=== PATIENT | female | born 1950 | race Caucasian/White ===

== ENCOUNTER 2016-04-23 12:35 | Outpatient (CLI) | payer MEDICARE, OTHER | END 2016-04-23 12:36 | disposition home or self-care (01) | DX: Z12.31 Encounter for screening mammogram for malignant neoplasm of breast (principal); Z80.3 Family history of malignant neoplasm of breast ==

== ENCOUNTER 2016-05-31 08:24 | Outpatient (CLI) | payer MEDICARE, OTHER | END 2016-05-31 08:25 | disposition home or self-care (01) | DX: E78.5 Hyperlipidemia, unspecified (principal); E03.9 Hypothyroidism, unspecified ==

== ENCOUNTER 2016-12-08 10:57 | Outpatient (CLI) | payer MEDICARE, OTHER ==
[2016-12-08 19:25] LABS: ALBUMIN/GLOBULIN RATIO 1.6 (1.0-2.2); BILIRUBIN,TOTAL 0.6 mg/dL (0.2-1.0); BUN - BLOOD UREA NITROGEN 15 mg/dL (6-20); CALCIUM 9.4 mg/dL (8.5-10.3); CARBON DIOXIDE - CO2 25 mmol/L (21-32); CHLORIDE 100 mmol/L (101-111); CHOLESTEROL 161 mg/dL; CREATININE 0.8 mg/dL (0.4-1.0); GFR - MDRD 72 (>89); GLUCOSE 100 mg/dL (70-100); HDL CHOLESTEROL 82 mg/dL; LDL/HDL RATIO 0.7 (<4.4); SODIUM 135 mmol/L (135-145); TOTAL PROTEIN 7.4 g/dL (6.7-8.2); TRIGLYCERIDES 90 mg/dL; VLDL CHOLESTEROL 18 mg/dL
== END 2016-12-08 10:58 | disposition home or self-care (01) ==
LOC: LAB.WCP 10:57
PROVIDERS: ATTEND Physician Assistant Medical
DX: R73.9 Hyperglycemia, unspecified (principal); E78.5 Hyperlipidemia, unspecified
CPT/HCPCS: 36415; 80053; 80061

== ENCOUNTER 2017-09-28 20:03 | Inpatient (IN) | payer MEDICARE, OTHER ==
--- NOTE | 2017-09-28 20:34 | ED Physician Documentation ---
PD HPI DYSPNEA - Stated complaint Stated Complaint: WEAK/SOB - Chief complaint Chief Complaint: General - History obtained from History obtained from: Patient - History of Present Illness Timing - duration: Months (1) Timing - details: Gradual onset, Still present Inciting event(s): Exercise (she feels lightheaded and dyspnea with easier activity, now with just walking up stairs.). No: URI Worsened by: Exertion Associated symptoms: Diaphoresis. No: Fever, Cough, Hemoptysis, Wheezing, Bilateral edema Similar symptoms before: Has not had sx before Recently seen: Clinic (seen at [facility] for upper abd pains, had EGD about 2 months ago and Dx with ulcers/h.pylori positive and just finished abx for that a few weeks ago or so.) Review of Systems Constitutional: reports: Fatigue. denies: Fever, Chills, Myalgias Nose: denies: Rhinorrhea / runny nose, Congestion Throat: denies: Sore throat Cardiac: denies: Chest pain / pressure, Palpitations, Pedal edema, Calf pain Respiratory: reports: Dyspnea. denies: Cough, Wheezing GI: reports: Abdominal Pain (intermittent upper abd pain c/w prior ulcer diagnosis, still pains with eating at times.), Nausea. denies: Abdominal Swelling, Vomiting, Constipation, Diarrhea (but has noted soft stools), Bloody / black stool : denies: Dysuria, Frequency Musculoskeletal: denies: Neck pain, Back pain Neurologic: reports: Generalized weakness, Near syncope. denies: Syncope, Altered mental status Endocrine: denies: Weight loss, Easy bruising / bleeding, Swollen lymph nodes Immunocompromised: denies: Immunocompromised PD PAST MEDICAL HISTORY - Past Medical History Cardiovascular: Hypertension, High cholesterol, Coronary artery disease, Peripheral Vascular Disease, Murmur, Other Respiratory: None Endocrine/Autoimmune: Type 2 diabetes, HyPOthyroidism GI: Ulcers (dx with EGD couple months ago, h.pylori positive. Finished meds and was to get stool test done end august. ) : None HEENT: None Psych: None Musculoskeletal: None Derm: None - Past Surgical History General: Colonoscopy Cardiovascular: Vascular surgery - Present Medications Home Medications: Ambulatory Orders Medication Instructions Recorded Confirmed Aspirin [Aspir-Low] 81 mg PO DAILY 06/25/15 06/25/15 Hydrochlorothiazide 12.5 mg PO DAILY 06/25/15 06/25/15 Metformin HCl 1,000 mg PO BID 06/25/15 06/25/15 Potassium Chloride 10 meq PO DAILY 06/25/15 06/25/15 Rosuvastatin Calcium [Crestor] 20 mg PO DAILY 06/25/15 06/25/15 - Allergies Allergies/Adverse Reactions: Allergies Allergy/AdvReac Type Severity Reaction Status Date / Time No Known Drug Allergies Allergy Verified 09/28/17 20:59 - Social History Does the pt drink ETOH?: No Does the pt have substance abuse?: No - Family History Family history: reports: CAD PD ED PE NORMAL - Vitals Vital signs reviewed: Yes (initially low BP but improved with lying down and with IV fluids. ) - General General: Alert and oriented X 3, Well developed/nourished - HEENT HEENT: Pharynx benign. No: Moist mucous membranes - Neck Neck: Supple, no meningeal sign, No adenopathy, No JVD - Cardiac Cardiac: RRR, No murmur - Respiratory Respiratory: Clear bilaterally - Abdomen Abdomen: Normal bowel sounds, Soft, Non distended, No organomegaly, Other (mild tenderness epigastric area) - Female Female : Deferred - Rectal Rectal: Other (dark stool, very guiac positive. ) - Back Back: No CVA TTP - Derm Derm: Warm and dry. No: Normal color (very pale) - Extremities Extremities: No deformity, No tenderness to palpate, Normal ROM s pain, No edema - Neuro Neuro: Alert and oriented X 3, No motor deficit, Normal speech - Psych Psych: Normal mood, Normal affect Results - Vitals Vitals: Vital Signs - 24 hr 09/28/17 09/28/17 09/28/17 20:09 20:27 20:45 Temperature 36.2 C L 36.2 C L 36.2 C L Heart Rate 88 96 96 Respiratory 20 20 22 Rate Blood Pressure 93/42 L 132/56 H O2 Saturation 91 L 96 09/28/17 09/28/17 09/28/17 21:04 21:31 21:43 Temperature 35.9 C L Heart Rate 93 86 84 Respiratory 23 20 17 Rate Blood Pressure 135/47 H 126/52 L 126/52 L O2 Saturation 99 98 100 Oxygen O2 Source Nasal cannula Oxygen Flow Rate 2 - EKG (time done) 20:36 Rate: Rate (enter#) (96) Rhythm: NSR [place]: Normal Intervals: Normal GA QRS: Normal Ischemia: Normal ST segments, T wave inversion (laterally). No: ST elevation c/ w ischemia, ST depression Compare to prior EKG: Old EKG unavailable - Labs Labs: Laboratory Tests 09/28/17 09/28/17 09/28/17 20:40 20:40 20:40 WBC RBC Hgb Hct MCV MCH MCHC RDW Plt Count MPV Neut # (Auto) Lymph # (Auto) [place] # (Auto) Eos # (Auto) Baso # (Auto) Absolute Nucleated RBC Nucleated RBC % Manual Slide Review RBC Morph Micro Appear Sodium Potassium Chloride Carbon Dioxide Anion Gap BUN Creatinine Estimated GFR (MDRD) Glucose Calcium Magnesium 2.2 Iron 9 L TIBC 431 % Saturation 2 L Transferrin 308 Total Bilirubin AST ALT Alkaline Phosphatase B-Natriuretic Peptide 443 H Total Protein Albumin Globulin Albumin/Globulin Ratio Lipase Vitamin B12 Blood Type O POSITIVE Blood Type Recheck Antibody Screen NEGATIVE Crossmatch IS Only See Detail 09/28/17 09/28/17 09/28/17 20:40 20:46 20:46 WBC 10.3 RBC 1.42 L Hgb 3.1 L* Hct 11.0 L* MCV 76.9 L MCH 21.8 L MCHC 28.3 L RDW 19.5 H Plt Count 334 MPV 8.4 Neut # (Auto) 8.8 H Lymph # (Auto) 0.7 L [place] # (Auto) 0.7 Eos # (Auto) 0.0 Baso # (Auto) 0.1 Absolute Nucleated RBC 0.21 Nucleated RBC % 2.1 Manual Slide Review Indicated RBC Morph Micro Appear 1+ NA CELLS Sodium 134 L Potassium 3.2 L Chloride 100 L Carbon Dioxide 18 L Anion Gap 16.0 H BUN 34 H Creatinine 0.8 Estimated GFR (MDRD) 72 L Glucose 136 H Calcium 9.3 Magnesium Iron TIBC % Saturation Transferrin Total Bilirubin 0.4 AST 55 H ALT 47 Alkaline Phosphatase 56 B-Natriuretic Peptide Total Protein 6.6 L Albumin 3.6 Globulin 3.0 Albumin/Globulin Ratio 1.2 Lipase 45 Vitamin B12 368 Blood Type Blood Type Recheck Antibody Screen Crossmatch IS Only 09/28/17 20:57 WBC RBC Hgb Hct MCV MCH MCHC RDW Plt Count MPV Neut # (Auto) Lymph # (Auto) [place] # (Auto) Eos # (Auto) Baso # (Auto) Absolute Nucleated RBC Nucleated RBC % Manual Slide Review RBC Morph Micro Appear Sodium Potassium Chloride Carbon Dioxide Anion Gap BUN Creatinine Estimated GFR (MDRD) Glucose Calcium Magnesium Iron TIBC % Saturation Transferrin Total Bilirubin AST ALT Alkaline Phosphatase B-Natriuretic Peptide Total Protein Albumin Globulin Albumin/Globulin Ratio Lipase Vitamin B12 Blood Type Blood Type Recheck O POSITIVE Antibody Screen Crossmatch IS Only - Rads (name of study) chest xray Radiology: Prelim report reviewed, EMP read contemporaneously (no acute infiltrates nor CHF. mildly enlarged heart. ) PD MEDICAL DECISION MAKING - ED course Complexity details: reviewed results, considered differential (very pale and guiac positive stools. Severe anemia. Symptoms of lightheaded, weak, dyspnea, fatigue are explainable with this. ), d/w patient, d/w family (daughter), d/w strategy consultant (Dr. Martinez - to have patient NPO after midnight. Talked with Dr. Maurice hospitalist, who will have patient in the hospital. ) - Sepsis Event Vital Signs: Vital Signs - 24 hr 09/28/17 09/28/17 09/28/17 20:09 20:27 20:45 Temperature 36.2 C L 36.2 C L 36.2 C L Heart Rate 88 96 96 Respiratory 20 20 22 Rate Blood Pressure 93/42 L 132/56 H O2 Saturation 91 L 96 09/28/17 09/28/17 09/28/17 21:04 21:31 21:43 Temperature 35.9 C L Heart Rate 93 86 84 Respiratory 23 20 17 Rate Blood Pressure 135/47 H 126/52 L 126/52 L O2 Saturation 99 98 100 Oxygen O2 Source Nasal cannula Oxygen Flow Rate 2 Departure - Departure Disposition: ED Place in Observation Clinical Impression: Exertional dyspnea, Postural lightheadedness Profound anemia Qualifiers: Anemia type: iron deficiency Iron deficiency anemia type: chronic blood loss Qualified Code(s): D50.0 - Iron deficiency anemia secondary to blood loss ( chronic) GI bleeding Qualifiers: GI bleed type/associated pathology: unspecified gastrointestinal hemorrhage type Qualified Code(s): K92.2 - Gastrointestinal hemorrhage, unspecified
[2017-09-28] MEDS ORDERED: SODIUM CHLORIDE 0.9% 1,000 ML IV ONE (20:41)
[2017-09-28 20:54] LABS: BASOPHILS # (AUTO) 0.1 10^3/uL (0.0-0.1); BASOPHILS % (AUTO) 0.6 %; EOSINOPHILS % (AUTO) 0.3 %; LYMPHOCYTES # (AUTO) 0.7 10^3/uL (1.5-3.5); LYMPHOCYTES % (AUTO) 6.8 %; MEAN CORPUSCULAR HEMOGLOBIN 21.8 pg (27.0-31.0); MEAN CORPUSCULAR HGB CONC 28.3 g/dL (32.0-36.0); MEAN CORPUSCULAR VOLUME 76.9 fL (81.0-99.0); MEAN PLATELET VOLUME 8.4 fL (7.9-10.8); MONOCYTES # (AUTO) 0.7 10^3/uL (0.0-1.0); MONOCYTES % (AUTO) 7.1 %; NEUTROPHILS # (AUTO) 8.8 10^3/uL (1.5-6.6); NEUTROPHILS % (AUTO) 85.2 %; PLT - PLATELET COUNT 334 10^3/uL (130-450); RED BLOOD COUNT 1.42 10^6/uL (4.20-5.40); RED CELL DISTRIBUTION WIDTH 19.5 % (12.0-15.0); WHITE BLOOD COUNT 10.3 x10^3/uL (4.8-10.8)
[2017-09-28 20:57] LABS: HGB - HEMOGLOBIN 3.1 g/dL (12.0-16.0)
[2017-09-28 21:05] LABS: ALBUMIN 3.6 g/dL (3.2-5.5); ALBUMIN/GLOBULIN RATIO 1.2 (1.0-2.2); BILIRUBIN,TOTAL 0.4 mg/dL (0.2-1.0); CALCIUM 9.3 mg/dL (8.5-10.3); CREATININE 0.8 mg/dL (0.4-1.0); TOTAL PROTEIN 6.6 g/dL (6.7-8.2)
[2017-09-28] MEDS ORDERED: PANTOPRAZOLE 40 MG VIAL IVP STA (21:10)
[2017-09-28] MEDS ORDERED: POTASSIUM CHLOR 10 MEQ/100 ML 10 MEQ/100 ML BAG IV ONE (21:30)
[2017-09-28 21:35] LABS: MAGNESIUM 2.2 mg/dL (1.7-2.8)
--- NOTE | 2017-09-28 21:47 | XRAY Report ---
Procedure Date: 09/28/2017 Accession Number: [id number] / [id number] Procedure: XR - Chest 1 View X-Ray CPT Code: 88611 FULL RESULT: EXAM: CHEST RADIOGRAPHY. EXAM DATE: 09/28/2017 09:29 PM. CLINICAL HISTORY: Dyspnea. COMPARISON: None. TECHNIQUE: 1 view. FINDINGS: Lungs/Pleura: No focal opacities evident. No pleural effusion. No pneumothorax. Mediastinum: Mild cardiac enlargement. Other: EKG leads overlie the chest. IMPRESSION: 1. No acute pulmonary process. 2. Mild cardiac enlargement. RADIA
[2017-09-28] MEDS ORDERED: HYDROmorphone 0.5 MG/0.5 ML SYRINGE IVP PRN (22:06)
[2017-09-28] MEDS ORDERED: ONDANSETRON 4 MG/2 ML VIAL IVP PRN (22:06)
[2017-09-28] MEDS ORDERED: ONDANSETRON ODT 4 MG TABLET TL PRN (22:06)
[2017-09-28] MEDS ORDERED: ACETAMINOPHEN 325 MG TABLET PO SCH (22:09)
[2017-09-28] MEDS ORDERED: POTASSIUM CHLORIDE INJ 40 MEQ in SODIUM CHLORIDE 0.9% 480 ML IV ONE (22:11)
[2017-09-28] MEDS ORDERED: diphenhydrAMINE 25 MG CAPSULE PO SCH (23:00)
[2017-09-28] MEDS ORDERED: SODIUM CHLORIDE 0.9% 1,000 ML IV SCH (23:00)
[2017-09-28] MEDS ORDERED: POTASSIUM CHLOR 10 MEQ/100 ML 10 MEQ/100 ML BAG IV SCH (23:00)
[2017-09-29] MEDS ORDERED: POTASSIUM CHLOR 10 MEQ/100 ML 10 MEQ/100 ML BAG IV SCH (01:00)
[2017-09-29] MEDS: SODIUM CHLORIDE FLUSH 0.9% 10 ML SYRINGE IVP SCH ×3 (01:19→17:56)
[2017-09-29] MEDS: SODIUM CHLORIDE FLUSH 0.9% 10 ML SYRINGE IVP PRN ×3 (01:46→18:08)
--- NOTE | 2017-09-29 04:29 | HISTORY & PHYSICAL EXAMINATION ---
DATE OF SERVICE: 09/28/2017 Physician: Chata Maurice MD PRIMARY CARE PROVIDER: Elaine Waldrop ADMITTING PROVIDER: Chata Maurice MD CHIEF COMPLAINT: Near syncope. HISTORY OF PRESENT ILLNESS: The patient is a 67-year-old, white female who has been having some GI problems over the last few months. She presented to her primary care provider in December 2016 with complaint of belching, nausea, gagging. She had been treated empirically with 2 weeks of Zantac therapy and felt better. However, the daughter felt that mom was not improved enough and, in December 2016, asked her primary care provider to please refer her to get an EGD. The patient had already had a colonoscopy on 07/07/2015 with Anali Martinez, and a tubular adenoma was found. The daughter really felt that she should be referred to [facility] since the patient was already seeing Vascular Surgery at [facility]. However, [facility] was not going to be able to get their mom in until August 2017, and as such requested an earlier intervention and referral to [facility]. I do not have the records from the [facility], but Dr. Burleson knows that the patient had an EGD through the [facility]. Ulcers were found that were H. pylori positive and she was treated with antibiotics for several weeks. She finished the antibiotics a few weeks ago. The patient was to have a followup stool test for H. pylori. However, in the last month, she has become more short of breath , more dyspneic on exertion. Very fatigued, very lightheaded. Today, she had near syncope several times as she tried to get up and walk. There is no chest pain, coughing, pedal edema. 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 She was brought in to the emergency room with the near syncope. Blood pressure was 93/42. She received normal saline and blood pressure rebounded to 132/56. Heart rate was 88 and stayed in the 70s or 80s in the emergency room. She was found to be an elderly, pale female with hemoglobin 3.1 and hematocrit 11. MCV 76.9. White cell count was 10.3 and platelets were 334. She had hypokalemia to 3.2, BUN 34, creatinine 0.8. As a diabetic, her random glucose was 136. Iron is low at 9, TIBC 431. Percent saturation 2. Transferrin 308. Vitamin B12 low normal at 368. Folate 30. BNP 443. She had dark stool that was very guaiac positive on Dr. Burleson's exam. On her medication list, she is taking aspirin, but no iron. REVIEW OF SYSTEMS: She clearly identifies the fatigue, lightheadedness, but she denies weight loss, abdominal pain. She herself feels that her stools have been normal colored. She denies blood from her vagina, urine, or bowels. It should be noted that the patient has a very vague affect. In answering a simple yes/no question, she has a very circumferential speech pattern as well as history giving. She wanders with a flight of ideas. I do not know if I can trust her history. As such, the patient is now placed in observation for blood transfusion. Dr. Martinez, general surgery, has already been consulted, and she plans on doing an EGD in the morning. PAST MEDICAL HISTORY 1. Asymptomatic peripheral arterial disease of the legs. In 2014, she had ABIs with exercise treadmill. Between 2014 and March 2017 the patient has had a drop in her circulation. Both legs are felt to have moderate peripheral vascular disease, but again asymptomatic. She lives in a tri-level home, still takes care of her property. Denies any leg pain or claudication symptoms. 2. Asymptomatic carotid stenosis. She has 50% to 60% right internal and left internal carotid stenosis with early left subclavian steal on her most recent evaluation, March 2017. Her disease is followed by Dr. King, through [facility]. 3. Hypertension. 4. Hyperthyroidism with Graves disease. This resulted in hair loss, fatigue, weight loss in 2009 into 2010. By February 2010, she underwent radioactive iodine ablation. She has been on supplemental therapy since then. 5. Glaucoma. 6. Hyperlipidemia. 7. Type 2 diabetes mellitus, controlled. No complications, not on long-term insulin. 8. G2, P2. 9. Gastroesophageal reflux disease. 10. Depression with anxiety and insomnia. 11. Ongoing tobacco abuse. 12. Osteopenia. 13. Varicosities of the legs. She underwent right lower extremity venous ablation with Dr. Velez in 2003 through [facility]. 14. Left ankle fracture in the remote past. 15. History of cardiac murmur. I do not find an echocardiogram in our system. However, in [facility], she is noted to have aortic regurgitation, mitral regurgitation, and tricuspid regurgitation. ALLERGIES: NO KNOWN DRUG ALLERGIES. MEDICATIONS 1. Aspirin 81 mg a day. 2. Hydrochlorothiazide 12.5 mg a day. 3. Metformin 1000 mg p.o. b.i.d. a.c. 4. Potassium chloride 10 mEq daily. 5. Crestor 20 mg daily. SOCIAL HISTORY: She was born in [place]. Her mom was to an Army man. At that point in time, he was stationed at [facility]. He had some type of injury in the war which resulted in a metal plate in his head, a history of abusive and alcoholic behavior. He abandoned them in [place]. Her mom had to place her children in an orphanage. Mom then got remarried a second time to a "not very nice man." Mom then had another few children with her second . Overall, the patient says that she has about 4 siblings from her first dad, and 7 half siblings with her second dad. From [place], they moved to [place]. She then met and her first and him. With her second "," that was a common law , she moved up from [facility], because he was [place], to [place]. They built their house in 1985 and lived on [facility] [address]. Unfortunately, her second of congestive heart failure and lung cancer in late 2010. She has been living in her own home since that time. It is a tri-level home, with a acreage. She has been able to walk up and down the hills, clean her house, take care of herself until recently. She has been slowing down since the of her . Some of it is from depression, some of it is from physical disability. Her house is now on the market and escrow closes for the sale in mid September. She has been slowly packing up her things with the help of her neighbors, her daughter who lives in [place]. The plan is for her to move to live with her daughter and to take her disabled dog with her to go live with her daughter. Part of her anxiety and depression has to do with the of her in 2010. She feels like she has not completely recovered from that. Also in the midst of all of that, her son got into an altercation with his father. It had to do with money and her 's children from another marriage. The son was put in penitentiary for assaulting his father, and he is still in penitentiary and is not expected to get out until 2020. She is worried about finances, worried about moving, worried about how this will impact her son who is in penitentiary. She started smoking in her mid 20s and smokes about a pack per day. She tried to quit once with hypnosis and was unsuccessful after a month. She denies any history of alcohol abuse. She used to drink maybe 1 glass of wine a day, but has not done so in a long time. She has no history of recreational substance abuse in the form of cannabis, cocaine, heroin, LSD, or methamphetamines. FAMILY HISTORY: Mom at age 86 of breast cancer. She also had high blood pressure and diabetes. Her father is unknown. He abandoned them and she ended up in an orphanage temporarily. Of her 4 full siblings and 7 half siblings, only 3 of them are alive. All of them of breast cancer, diabetes , hypertension or old age. Of her 2 children, her daughter has narcolepsy. As far as she knows about her incarcerated son, he is healthy. No history of thyroid, cancer, diabetes, or hypertension. Gout in her brothers and sisters. REVIEW OF SYSTEMS GENERAL: The patient does have cold intolerance, but no history of sweats, unexpected weight changes. ENT: Denies any amaurosis fugax. Occasionally has blurred vision. Occasional mild headaches. Her dentures make her gag. Sometimes food does not taste good. PULMONARY: Although she has Ventolin on her medication list through her doctor' s office, she denies coughing, wheezing, chest congestion. CARDIAC: Denies chest pain, but does get occasional palpitations. The palpitations were mainly around the time she was getting treatment for her overactive thyroid. She has not had much since then. She used to have pretty severe bilateral leg edema, but that was when she was working as a hairdresser. Since she stopped working as a hairdresser that has improved. She has not had recurrence of varicose veins. She has had that cardiac murmur. She denies heart attack, congestive heart failure, and is not really aware of her valvular heart disease. Endurance is markedly decreased over the last month, but she cannot pinpoint why. Lightheadedness has also been worse over the last month. Lack of insight as to why. ABDOMEN: She gets easy nausea, intermittent abdominal distention. Denies any dark stools, blood in her stools. Denies generalized abdominal pain or any specific abdominal pain. Appetite has been plus/minus, but no chart changer the last few months. She describes gagging, but no emesis. No hematemesis. Weight was 159 pounds in March 2017. GENITOURINARY: Occasional urinary incontinence with coughing and sneezing, but denies flank pain, hematuria, urgency, frequency. She denies any postmenopausal vaginal bleeding. JOINTS: Vague discomfort in all of her joints "all over." No specific joint pain. No recent joint effusions. No trauma. Left ankle always aches ever since she broke it. SKIN: Denies any rashes, petechiae. Sometimes she bruises more than she would like. PSYCHIATRIC: Increased fatigue, depression, but not suicidal. Overall feeling of stress, being overwhelmed. Worry for her son, worry about moving all weigh heavily on her. ENDOCRINE: Denies sweats, polyphagia, polydipsia, polyuria. Denies tachycardia , and no recent hair changes. CENTRAL NERVOUS SYSTEM: Denies memory loss. When I ask her about her communication style, where she can never seem to answer a question directly, but digresses to various points in a stream of consciousness, she says that she thinks that she get that from being a hairdresser, all those years of speaking to people nonstop. Recently, with all the stress she is under, all these thoughts just sort of congregate in her head and come out of her mouth. She denies focal neurological deficits. Denies true syncope. Denies seizures. PHYSICAL EXAMINATION I am seeing the patient after she has received 1 unit of blood and 1 liter of fluid. She is now on [facility] unit. VITAL SIGNS: Temperature is 36.7, pulse is 78, blood pressure 123/48, respirations 16, and she is 100% saturated on 1.5 liters nasal cannula. The nurses are giving her oxygen on the basis of her anemia. GENERAL: Overall physical exam is that of a pleasant, fatigued woman, who looks much older than stated age, vague affect. HEAD AND NECK: Unremarkable. Sclerae are nonicteric. Dry oral mucosa and she would dearly love a glass of water and ice. No facial asymmetry. Speech is intact and normal. No hoarseness. Neck is supple. Bilateral carotid bruits. Normal carotid upstroke. Slightly enlarged bilateral thyroid that is palpable. LUNGS: Clear to auscultation and percussion. No crackles, rhonchi, wheezing and she has no increased respiratory effort with talking to me. HEART: PMI is normally placed with a regular rate and rhythm, and she does have a slight systolic ejection murmur at the left lower sternal border that does not track up to the right upper sternal border. ABDOMEN: Soft, normal bowel sounds. No masses palpable. No rebound or guarding or tenderness. EXTREMITIES: She has bilateral femoral bruits. Palpable but barely palpable dorsalis pedis pulses. No clubbing or cyanosis. Trace pedal edema. No joint effusions. NEUROLOGIC: She is alert to person, place and time, but she is not aware of why she is here. She gets easily confused in spite of 3 attempts that explained to her about her anemia, why the need for the repeat EGD and what is happening to her. She is able to sit up from a lying position, to transfer to a sitting position for exam. Lightheaded when she does that, but no tremors, no deficits and does it without an assist. LABORATORY DATA: Sodium 134, potassium 3.2, chloride 100, carbon dioxide 18 and low, anion gap is high at 16, BUN 34, creatinine 0.8. GFR 72 and random glucose is 136. Magnesium is 2.2. Iron is 9, TIBC 431, 2% saturation, transferrin 308, total bilirubin 0.4, AST 55, ALT 47, alkaline phosphatase 56. BNP 443. Total protein 6.6. B12 368, folate 30. White cell count 10.3, hemoglobin 3.1, hematocrit 11, platelets 334. EKG has normal sinus rhythm with PACs. Left atrial enlargement. Left ventricular hypertrophy with IVCD and secondary repolarization abnormalities. Chest x-ray with no acute cardiopulmonary process, mild cardiac enlargement. ASSESSMENT/PLAN 1. Chronic blood loss anemia. This patient's previous hemoglobin is only available to 2016. Hemoglobin was 13.3 at that time. This is in [facility]. When I look at her chart in [facility], a hematocrit is available from December 2015 at 41.9. There is no other CBC. At that time, hemoglobin was 13.3. The patient herself denies any hematuria, vaginal bleeding, or dark tarry stools. She is fecal occult blood positive in the emergency room. Differential diagnosis in this elderly woman who smokes would be a gastric neoplasm. Colonoscopy was done in 2016 and negative, other than for tubular adenoma. EGD was recently done at [facility], so the differential from that encounter would be gastric ulcer disease. There is no mention of neoplasm. Plan: a. Place in observation. b. I anticipate the patient will be in the hospital less than 96 hours. At this time, we plan on transfusing her 4 units of blood, have an endoscopy in the morning with Dr. Martinez. c. Anemia panel shows that it is iron deficiency anemia. No hemolysis or B12 deficiency. d. At the patient's daughter's discretion, the patient will either follow up with Dr. Martinez, or [facility], or [facility]. 2. Hypokalemia. Plan: a. Since she is n.p.o. for her EGD in the morning, we will give her potassium riders, 20 mEq total. b. Check BMP in the morning. 3. High anion gap with low carbon dioxide. I suspect she has mild lactic acidosis from her metformin, and the patient is most likely dehydrated and volume depleted. I do not suspect salicylate toxicity. She does not have renal failure. Plan: a. IV hydration, volume expansion with blood products. b. Check BMP in a.m. 4. Type 2 diabetes mellitus, controlled. No complications, not a long-term insulin. Hemoglobin A1c was 5.3% in December 2015, in her EMR in [facility]. No hemoglobin A1c since that time. Last metformin prescribed was in January 2017 with 3 refills, 180 tablets. We will have Pharmacy verify in the morning if she is really taking this. At this time, no sliding scale insulin ordered. I do not anticipate needing it while she is here. 5. Peripheral vascular disease. Risk management ongoing with low hemoglobin A1c, statin. It would be preferable if she could stop smoking and she acknowledges that. 6. Tobacco abuse. No history of COPD on review of systems. None seen on physical exam findings. Patient strongly encouraged to stop smoking. 7. FULL CODE status. She states that she has never really discussed this with her daughter. She knows that she does not want to be disabled and end up in a longterm. If she does end up in a longterm or disabled, requiring 24/7 care, she does not want to be kept alive. However, again, she has not discussed this with her daughter. As such, by default, she will be FULL CODE. To discuss this with her daughter and make appropriate POLST form discussion with her PCP. 8. Deep venous thrombosis prophylaxis will be ELIZABETH mata. No anticoagulation in the face of someone who has anemia, fecal occult blood positive stool and a history of ulcers. TD: 09/29/2017 02:58 MICHI
[2017-09-29] MEDS: PANTOPRAZOLE 40 MG VIAL IVP SCH ×2 (06:35→15:51)
[2017-09-29] MEDS ORDERED: SODIUM CHLORIDE 0.9% 1,000 ML IV SCH (09:00)
[2017-09-29] MEDS ORDERED: LIDO GARGLE 30 ML BOTTLE ONE (09:48)
[2017-09-29] MEDS: FERROUS SULFATE 325 MG TABLET PO SCH ×2 (10:18→17:56)
--- NOTE | 2017-09-29 10:19 | ANESTHESIA ---
Pre-Anesthesia VS, & Labs - Diagnosis GI bleeding, anemia - Procedure EGD Vital Signs: Temp Pulse Resp BP Pulse Ox 36.6 C 70 16 113/62 100 09/29/17 08:50 09/29/17 08:50 09/29/17 08:50 09/29/17 08:50 09/29/17 07:48 Height 5 ft 4 in Weight (kg) 65 kg Body Mass Index 24.5 - NPO >8 hours - Is Patient ?: Not Applicable - Lab Results Fish Bones: 09/28/17 20:46 09/28/17 20:46 Home Medications and Allergies Home Medications: Ambulatory Orders Medication Instructions Recorded Confirmed Aspirin [Aspir-Low] 81 mg PO DAILY 06/25/15 06/25/15 Hydrochlorothiazide 12.5 mg PO DAILY 06/25/15 06/25/15 Metformin HCl 1,000 mg PO BID 06/25/15 06/25/15 Potassium Chloride 10 meq PO DAILY 06/25/15 06/25/15 Rosuvastatin Calcium [Crestor] 20 mg PO DAILY 06/25/15 06/25/15 Allergies/Adverse Reactions: Allergies Allergy/AdvReac Type Severity Reaction Status Date / Time No Known Drug Allergies Allergy Verified 09/28/17 20:59 Anes History & Medical History - Anesthetic History Anesthesia Complications: reports: No previous complications - Medical History Cardiovascular: reports: Hypertension, High cholesterol, Coronary artery disease , Peripheral Vascular Disease, Murmur, Other Pulmonary: reports: None Gastrointestinal: reports: Ulcers (dx with EGD couple months ago, h.pylori positive. Finished meds and was to get stool test done end august. ) Urinary: reports: None Neuro: reports: None Musculoskeletal: reports: None Endocrine/Autoimmune: reports: Type 2 diabetes, HyPOthyroidism Blood Disorders: reports: None Skin: reports: None Smoking Status: Current every day smoker Other Past Medical History: aortic stenosis, carotid artery 50% blockage - Surgical History General: Colonoscopy Cardiothoracic: Vascular surgery Results - EKG Results EKG Comparison: Reviewed EKG (SR) - Echo Results Echo Results: Report reviewed (2015 echo, EF 75%, mild aortic regurg,no wall motion abnormalities) Exam Dental: Dentures full Upper Mouth Opening: Greater than 4 Fingerbreadths Neck Mobility: Normal Mallampati classification: I Thyromental Distance: greater than 6 cm Respiratory: Lungs clear Cardiovascular: Regular rate, Normal S1, Normal S2 Plan Anesthesia Type: MAC Consent for Procedure(s) Verified and Reviewed: Yes Code Status: Attempt Resuscitation ASA classification: 3-Severe systemic disease Is this case an emergency?: Yes
[2017-09-29] MEDS: POLYETHYLENE GLYCOL 3350 17 GM PACKET PO SCH (10:23)
--- NOTE | 2017-09-29 10:56 | CONSULTATION NOTE ---
Referring Provider Consult Date: 09/29/17 Chief Complaint - Chief Complaint Chief Complaint: anemia History of Present Illness - History of Present Illness HPI Comment/Other: This is a 67-year-old female who presented to the emergency department last night with complaints of fatigue dizziness and a near syncopal event. Upon evaluation in the emergency department her hemoglobin was noted to be 3 and she was hypotensive upon arrival. She was administered a bolus of crystalloid and her blood pressure responded appropriately. Subsequently a stool guaiac was performed which was noted to be positive. The patient has had what she calls stomach problems for several months. She apparently was seen at the [facility] for such an EGD was done. As per the patient this was positive for H pylori and peptic ulcer disease and she was started on appropriate medications. She states that she did complete these medications as indicated but failed to perform the completion stool antibody tests to confirm resolution of the H. pylori. She seems to have some memory loss and her history is somewhat vague. She does continue to take Zantac twice daily and states that she does not have current GERD symptoms. She denies any abdominal pain. She denies any change in the color of her stools and states that she has been constipated and has not had a bowel movement for a while. She cannot state length of time she has gone without having a bowel movement. She did have a colonoscopy in 2016 which was notable for tubular adenoma located in her ascending colon. She is an active smoker and smokes a pack a day. History - Past Medical History Cardiovascular: reports: Hypertension, High cholesterol, Coronary artery disease , Peripheral Vascular Disease, Murmur, Other Respiratory: reports: None Neuro: reports: None Endocrine/Autoimmune: reports: Type 2 diabetes, HyPOthyroidism GI: reports: Ulcers (dx with EGD couple months ago, h.pylori positive. Finished meds and was to get stool test done end of August. ) : reports: None HEENT: reports: None Psych: reports: None Musculoskeletal: reports: None Derm: reports: None MRSA Hx?: No Other Past Medical History: aortic stenosis, carotid artery 50% blockage - Past Surgical History General: reports: Colonoscopy Cardiovascular: reports: Vascular surgery - POLST Patient has POLST: No Meds/Allgy - Home Medications Home Medications: Ambulatory Orders Medication Instructions Recorded Confirmed Aspirin [Aspir-Low] 81 mg PO DAILY 06/25/15 06/25/15 Hydrochlorothiazide 12.5 mg PO DAILY 06/25/15 06/25/15 Metformin HCl 1,000 mg PO BID 06/25/15 06/25/15 Potassium Chloride 10 meq PO DAILY 06/25/15 06/25/15 Rosuvastatin Calcium [Crestor] 20 mg PO DAILY 06/25/15 06/25/15 - Allergies Allergies/Adverse Reactions: Allergies Allergy/AdvReac Type Severity Reaction Status Date / Time No Known Drug Allergies Allergy Verified 09/28/17 20:59 Review of Systems - Constitutional Constitutional: reports: Fatigue - Gastrointestinal Gastrointestinal: reports: Constipation. denies: Abdominal pain, Abdominal distention, Diarrhea, Change in bowel habits, Rectal bleeding, Black stools, Bloody stools, Nausea, Vomiting Exam - Vital Signs Reviewed Vital Signs: Yes Vital Signs: Vital Signs x48h Temp Pulse Pulse Resp BP BP Pulse Ox 09/29/17 08:50 36.6 C 70 16 113/62 09/29/17 08:35 36.8 C 75 17 118/76 09/29/17 08:06 36.8 C 130 H 18 118/76 09/29/17 07:48 37.3 C 75 18 104/61 100 09/29/17 05:39 36.9 C 96 16 95/51 L 09/29/17 05:33 36.9 C 90 16 94/50 L 09/29/17 05:28 37 C 103 H 16 95/51 L 09/29/17 04:49 37 C 94 17 101/57 L 09/29/17 04:19 36.6 C 65 17 93/46 L 100 - Physical Exam General Appearance: positive: No acute distress, Other (pale) Respiratory: positive: No respiratory distress Cardiovascular: positive: Regular rate & rhythm Abdomen: positive: Non-tender, No distention Extremities: positive: No pedal edema Neurologic/Psychiatric: positive: Oriented x3 Conclusion/Plan - Diagnosis Diagnosis: anemia, guiac pos stool - Plan Plan: The patient is receiving her fourth unit of packed red blood cells and will subsequently undergo an EGD for diagnostic evaluation. The differential includes peptic ulcer disease, gastritis, Dieulafoy lesion and less likely colonic masses or lower GI bleed. If the upper endoscopy is normal she may require a colonoscopy at a latter date. The procedure explained to the patient in detail including potential risks involved. She agrees and to proceed. - Lab Results Fish Bones: 09/28/17 20:46 09/28/17 20:46
[2017-09-29] MEDS: SODIUM CHLORIDE 0.9% 1,000 ML IV SCH ×2 (11:15→21:26)
[2017-09-29] MEDS ORDERED: SODIUM CHLORIDE 0.9% 1,000 ML IV ONE (12:19)
[2017-09-29] MEDS ORDERED: LIDO GARGLE 30 ML BOTTLE PO ONE (12:25)
[2017-09-29] MEDS ORDERED: PROPOFOL 200 MG/20 ML VIAL IVP ONE (12:55)
[2017-09-29] MEDS ORDERED: LIDOCAINE-MPF 2% 5 ML VIAL IM ONE (12:55)
[2017-09-29 13:45] LABS: MEAN CORPUSCULAR HEMOGLOBIN 26.2 pg (27.0-31.0); MEAN CORPUSCULAR HGB CONC 32.6 g/dL (32.0-36.0); MEAN CORPUSCULAR VOLUME 80.3 fL (81.0-99.0); MEAN PLATELET VOLUME 8.3 fL (7.9-10.8); RED BLOOD COUNT 3.06 10^6/uL (4.20-5.40); RED CELL DISTRIBUTION WIDTH 17.1 % (12.0-15.0); WHITE BLOOD COUNT 8.6 x10^3/uL (4.8-10.8)
[2017-09-29 13:52] LABS: CREATININE 0.8 mg/dL (0.4-1.0)
[2017-09-29] MEDS ORDERED: SODIUM/POTASSIUM/MAG SULFATES 354 ML PREP KIT PO SCH (14:00)
[2017-09-29] MEDS ORDERED: POTASSIUM CHLORIDE 20 MEQ TABLET PO ONE (14:40)
--- NOTE | 2017-09-29 14:59 | PROVIDER PROGRESS NOTE ---
Subjective - Prog Note Date Prog Note Date: 09/29/17 - Subjective Pt reports feeling: Improved Subjective: pt feel much better after transfusion of blood. pt had EGD done today. Surgeon state she did not find significant abnormality or acute bleed to explain of severe anemia from GI bleed, and plan to have colonoscopy on tomorrow. Current Medications - Current Medications Current Medications: Active Medications Ferrous Sulfate (Feosol) 325 mg PO BIDWM [facility] Last Admin: 09/29/17 10:18 Dose: Not Given Hydromorphone HCl (Dilaudid Inj Syringe) 0.5 mg IVP Q2H PRN PRN Reason: Pain 8 to 10 Sodium Chloride (Normal Saline 0.9%) 1,000 mls @ 75 mls/hr IV .[id number] [facility] Last Admin: 09/29/17 11:15 Dose: 75 mls/hr Ondansetron HCl (Zofran Inj) 4 mg IVP Q6HR PRN PRN Reason: Nausea / Vomiting Ondansetron HCl (Zofran Odt) 4 mg TL Q6HR PRN PRN Reason: Nausea / Vomiting Pantoprazole Sodium (Protonix) 40 mg IVP BIDAC [facility] Last Admin: 09/29/17 06:35 Dose: 40 mg Polyethylene Glycol (Miralax) 17 gm PO DAILY [facility] Last Admin: 09/29/17 10:23 Dose: Not Given Sodium Chloride (Normal Saline Flush 0.9%) 10 ml IVP PRN PRN PRN Reason: NEEDED PER PROVIDER ORDERS Last Admin: 09/29/17 06:35 Dose: 10 ml Sodium Chloride (Normal Saline Flush 0.9%) 10 ml IVP 0100,0900,1700 [facility] Last Admin: 09/29/17 08:30 Dose: 10 ml Sodium Sulfate/Potass Sulf/Mag Sulf (Suprep Bowel Prep Kit) 177 ml PO 1800, 0500 [facility] Stop: 09/30/17 05:01 Aspirin [Aspir-Low] 81 mg PO DAILY 06/25/15 Hydrochlorothiazide 12.5 mg PO DAILY 06/25/15 Metformin HCl 1,000 mg PO BID 06/25/15 Potassium Chloride 10 meq PO DAILY 06/25/15 Rosuvastatin Calcium [Crestor] 20 mg PO QPM 06/25/15 Ca/D3/Mag#11/Zinc/Director Of [employer]/Dmitry/Bor [Caltrate 600+D Plus Tablet] 1 each PO BID Levothyroxine [Synthroid] 100 mcg PO .QDAC (NOT TUESDAY) 09/29/17 Levothyroxine [Synthroid] 200 mcg PO .QSUNDAY AC 09/29/17 Zolpidem Tartrate [Ambien] 10 mg PO QPM PRN 09/29/17 diazePAM [Diazepam] 2.5 - 5 mg PO QPM PRN 09/29/17 raNITIdine HCl [Ranitidine HCl] 150 mg PO BID 09/29/17 Objective - Vital Signs/Intake & Output Reviewed Vital Signs: Yes Vital Signs: Vital Signs x48h Temp Pulse Resp BP Pulse Ox 09/29/17 14:44 36.7 C 63 18 124/50 L 100 09/29/17 13:25 36.9 C 67 16 141/54 H 100 09/29/17 12:52 36.4 C L 66 16 116/50 L 99 Intake & Output: Intake & Output 09/26/17 09/27/17 09/28/17 09/29/17 23:59 23:59 23:59 23:59 Intake Total 240 Balance 240 - Objective General Appearance: positive: No acute distress, Alert. negative: Lethargic Eyes Bilateral: positive: Normal inspection, PERRL, No lid inflammation, Conjunctivae nml ENT: positive: ENT inspection nml, Pharynx nml, No signs of dehydration. negative: Purulent nasal drainage, Pharyngeal erythema, Oral lesions Neck: positive: Nml inspection, Thyroid nml, No JVD, Trachea midline. negative : Thyromegaly, Lymphadenopathy (R), Lymphadenopathy (L), Stiff neck, Carotid bruit, Swelling/bruising, Tracheal deviation Respiratory: positive: Chest non-tender, No respiratory distress, Breath sounds nml. negative: Wheezes, Rales, Rhonchi Cardiovascular: positive: Regular rate & rhythm, No murmur, No gallop. negative : Irregularly irregular, Extrasystoles, Tachycardia, Bradycardia, JVD present, Systolic murmur, Diastolic murmur Peripheral Pulses: 2+ Radial (R), 2+ Radial (L), 2+ Dorsalis pedis (R), 2+ Dorsalis pedis (L) Abdomen: positive: Non-tender, No organomegaly, Nml bowel sounds, No distention. negative: Tenderness, Guarding, Rebound Back: positive: Nml inspection. negative: CVA tenderness (R), CVA tenderness (L ) Skin: positive: Color nml, No rash, Warm, Dry. negative: Cyanosis, Diaphoresis , Pallor Extremities: positive: Non-tender, Full ROM, Nml appearance. negative: Calf tenderness, Joint swelling, Julia's sign/cords Neurologic/Psychiatric: positive: Oriented x3, Motor nml, Sensation nml, Mood/ affect nml. negative: Weakness, Sensory loss, Facial droop, Slurred/abnml speech, Depressed mood/affect - Lab Results Fish Bones: 09/29/17 13:39 09/29/17 13:39 Other Labs: Lab Results x24hrs 09/29/17 09/29/17 Range/Units 13:39 13:39 WBC 8.6 (4.8-10.8) x10^3/uL RBC 3.06 L (4.20-5.40) 10^6/uL Hgb 8.0 L (12.0-16.0) g/dL Hct 24.5 L (37.0-47.0) % MCV 80.3 L (81.0-99.0) fL MCH 26.2 L (27.0-31.0) pg MCHC 32.6 (32.0-36.0) g/dL RDW 17.1 H (12.0-15.0) % Plt Count 197 (130-450) 10^3/uL MPV 8.3 (7.9-10.8) fL Sodium 135 (135-145) mmol/L Potassium 3.2 L (3.5-5.0) mmol/L Chloride 107 (101-111) mmol/L Carbon Dioxide 21 (21-32) mmol/L Anion Gap 7.0 (6-13) BUN 21 H (6-20) mg/dL Creatinine 0.8 (0.4-1.0) mg/dL Estimated GFR (MDRD) 72 L (>89) Glucose 100 (70-100) mg/dL Calcium 8.0 L (8.5-10.3) mg/dL ABX Reporting Has patient been on IV antibiotics over the past 48 hours?: No Assessment/Plan - Problem List (1) GI bleeding Impression: plan to have colonoscopy tomorrow, per GI surgeon clear diet continue IVF start Protonix IV H&H Qualifiers: GI bleed type/associated pathology: unspecified gastrointestinal hemorrhage type Qualified Code(s): K92.2 - Gastrointestinal hemorrhage, unspecified (2) Profound anemia Impression: after transfusion of 4 units, pt's HGB 8 continue H&H it appears iron deficiency as well, start iron pill Qualifiers: Anemia type: iron deficiency Iron deficiency anemia type: chronic blood loss Qualified Code(s): D50.0 - Iron deficiency anemia secondary to blood loss (chronic) (3) Hypokalemia Impression: replacement of Potassium lab check (5) Current smoker Impression: advise pt quit (6) Hypothyroidism Impression: stable, continue home meds, check TSH
[2017-09-29] MEDS ORDERED: diazePAM 5 MG TABLET PO PRN (15:07)
[2017-09-29 15:34] LABS: HB2 TOTAL 8.2 g/dL; HEMOGLOBIN A1C 0.27 g/dL; HEMOGLOBIN A1C % 5.2 % (4.6-6.2)
[2017-09-29] MEDS: LEVOTHYROXINE 100 MCG TABLET PO SCH (15:51)
[2017-09-29 16:44] LABS: H. PYLORIS ANTIGEN STL NEGATIVE (Negative)
[2017-09-29] MEDS: INSULIN ASPART 300 UNIT/3 ML PEN SUBQ SCH ×2 (17:56→21:07)
[2017-09-29] MEDS: SODIUM/POTASSIUM/MAG SULFATES 354 ML PREP KIT PO SCH (17:57)
[2017-09-29 20:09] LABS: HGB - HEMOGLOBIN 8.7 g/dL (12.0-16.0)
[2017-09-30] MEDS: SODIUM CHLORIDE FLUSH 0.9% 10 ML SYRINGE IVP SCH ×3 (00:32→16:14)
[2017-09-30] MEDS: SODIUM/POTASSIUM/MAG SULFATES 354 ML PREP KIT PO SCH (05:19)
[2017-09-30 05:54] LABS: EOSINOPHILS # (AUTO) 0.1 10^3/uL (0.0-0.7); HGB - HEMOGLOBIN 7.3 g/dL (12.0-16.0); LYMPHOCYTES # (AUTO) 0.9 10^3/uL (1.5-3.5); MONOCYTES # (AUTO) 0.4 10^3/uL (0.0-1.0); WHITE BLOOD COUNT 6.5 x10^3/uL (4.8-10.8)
[2017-09-30 05:58] LABS: BASOPHILS % (AUTO) 0.2 %; LYMPHOCYTES % (AUTO) 13.7 %; MEAN CORPUSCULAR HEMOGLOBIN 26.4 pg (27.0-31.0); MEAN CORPUSCULAR HGB CONC 32.3 g/dL (32.0-36.0); MEAN CORPUSCULAR VOLUME 81.7 fL (81.0-99.0); MEAN PLATELET VOLUME 8.7 fL (7.9-10.8); MONOCYTES % (AUTO) 6.6 %; NEUTROPHILS % (AUTO) 77.5 %; PLT - PLATELET COUNT 195 10^3/uL (130-450); RED BLOOD COUNT 2.77 10^6/uL (4.20-5.40); RED CELL DISTRIBUTION WIDTH 17.1 % (12.0-15.0)
[2017-09-30 06:02] LABS: ALBUMIN 2.9 g/dL (3.2-5.5); ALBUMIN/GLOBULIN RATIO 1.3 (1.0-2.2); BILIRUBIN,TOTAL 0.9 mg/dL (0.2-1.0); CALCIUM 7.9 mg/dL (8.5-10.3); CREATININE 0.4 mg/dL (0.4-1.0); MAGNESIUM 2.1 mg/dL (1.7-2.8); TOTAL PROTEIN 5.1 g/dL (6.7-8.2)
[2017-09-30] MEDS: PANTOPRAZOLE 40 MG VIAL IVP SCH ×2 (06:34→16:14)
[2017-09-30] MEDS: SODIUM CHLORIDE FLUSH 0.9% 10 ML SYRINGE IVP PRN (06:39)
[2017-09-30] MEDS: POTASSIUM CHLOR 10 MEQ/100 ML 10 MEQ/100 ML BAG IV SCH ×4 (07:51→11:02)
[2017-09-30] MEDS ORDERED: POTASSIUM CHLORIDE 20 MEQ TABLET PO ONE ×2 (07:56→17:22)
[2017-09-30] MEDS: POLYETHYLENE GLYCOL 3350 17 GM PACKET PO SCH (09:25)
[2017-09-30] MEDS: INSULIN ASPART 300 UNIT/3 ML PEN SUBQ SCH ×4 (09:55→21:39)
[2017-09-30] MEDS: LEVOTHYROXINE 100 MCG TABLET PO SCH (13:22)
[2017-09-30] MEDS: hydroCHLOROthiazide 12.5 MG CAPSULE PO SCH (13:22)
[2017-09-30] MEDS: FERROUS SULFATE 325 MG TABLET PO SCH ×2 (13:22→16:14)
[2017-09-30] MEDS ORDERED: PROPOFOL 200 MG/20 ML VIAL IVP ONE (13:45)
[2017-09-30] MEDS ORDERED: MIDAZOLAM 2 MG/2 ML VIAL IVP ONE (13:45)
[2017-09-30] MEDS ORDERED: LACTATED RINGERS 1,000 ML IV ONE (14:45)
--- NOTE | 2017-09-30 17:13 | PROVIDER PROGRESS NOTE ---
Subjective - Prog Note Date Prog Note Date: 09/30/17 - Subjective Pt reports feeling: Improved Subjective: pt report she had "a little bloody stool." in the morning. She denies dizziness , SOB, CP, fever, chill. Current Medications - Current Medications Current Medications: Active Medications Diazepam (Valium) 5 mg PO QPM PRN PRN Reason: Insomnia Ferrous Sulfate (Feosol) 325 mg PO BIDWM [facility] Last Admin: 09/30/17 16:14 Dose: 325 mg Hydrochlorothiazide (Hydrodiuril) 12.5 mg PO DAILY [facility] Last Admin: 09/30/17 13:22 Dose: Not Given Hydromorphone HCl (Dilaudid Inj Syringe) 0.5 mg IVP Q2H PRN PRN Reason: Pain 8 to 10 Sodium Chloride (Normal Saline 0.9%) 1,000 mls @ 75 mls/hr IV .[id number] [facility] Last Infusion: 09/30/17 06:03 Dose: 75 mls/hr Insulin Aspart (Novolog) 1 - 5 unit SUBQ 0800,1200,1700,2100 [facility] PRN Reason: Protocol Last Admin: 09/30/17 16:18 Dose: Not Given Levothyroxine Sodium (Synthroid) 200 mcg PO OAW [facility] Levothyroxine Sodium (Synthroid) 100 mcg PO 0700 [facility] Last Admin: 09/30/17 13:22 Dose: Not Given Ondansetron HCl (Zofran Inj) 4 mg IVP Q6HR PRN PRN Reason: Nausea / Vomiting Ondansetron HCl (Zofran Odt) 4 mg TL Q6HR PRN PRN Reason: Nausea / Vomiting Pantoprazole Sodium (Protonix) 40 mg IVP BIDAC [facility] Last Admin: 09/30/17 16:14 Dose: 40 mg Polyethylene Glycol (Miralax) 17 gm PO DAILY [facility] Last Admin: 09/30/17 09:25 Dose: Not Given Sodium Chloride (Normal Saline Flush 0.9%) 10 ml IVP PRN PRN PRN Reason: NEEDED PER PROVIDER ORDERS Last Admin: 09/30/17 06:39 Dose: 10 ml Sodium Chloride (Normal Saline Flush 0.9%) 10 ml IVP 0100,0900,1700 [facility] Last Admin: 09/30/17 16:14 Dose: 10 ml Aspirin [Aspir-Low] 81 mg PO DAILY 06/25/15 Hydrochlorothiazide 12.5 mg PO DAILY 06/25/15 Metformin HCl 1,000 mg PO BID 06/25/15 Potassium Chloride 10 meq PO DAILY 06/25/15 Rosuvastatin Calcium [Crestor] 20 mg PO QPM 06/25/15 Ca/D3/Mag#11/Zinc/Net Mender/Dmitry/Bor [Caltrate 600+D Plus Tablet] 1 each PO BID Levothyroxine [Synthroid] 100 mcg PO .QDAC (NOT TUESDAY) 09/29/17 Levothyroxine [Synthroid] 200 mcg PO .QSUNDAY AC 09/29/17 Zolpidem Tartrate [Ambien] 10 mg PO QPM PRN 09/29/17 diazePAM [Diazepam] 2.5 - 5 mg PO QPM PRN 09/29/17 raNITIdine HCl [Ranitidine HCl] 150 mg PO BID 09/29/17 Objective - Vital Signs/Intake & Output Reviewed Vital Signs: Yes Vital Signs: Vital Signs x48h Temp Pulse Resp BP BP Pulse Ox 09/30/17 15:57 36.7 C 72 16 132/84 H 96 09/30/17 15:30 36.6 C 63 16 148/61 H 100 09/30/17 15:11 36.3 C L 15 128/61 100 09/30/17 15:00 22 120/52 L 100 09/30/17 14:50 36.6 C 15 113/51 L 100 Intake & Output: Intake & Output 09/27/17 09/28/17 09/29/17 09/30/17 23:59 23:59 23:59 23:59 Intake Total 3203.75 2246.25 Balance 3203.75 2246.25 - Objective General Appearance: positive: No acute distress, Alert. negative: Lethargic Eyes Bilateral: positive: Normal inspection, PERRL, No lid inflammation, Conjunctivae nml ENT: positive: ENT inspection nml, Pharynx nml, No signs of dehydration. negative: Purulent nasal drainage, Pharyngeal erythema, Oral lesions Neck: positive: Nml inspection, Thyroid nml, No JVD, Trachea midline. negative : Thyromegaly, Lymphadenopathy (R), Lymphadenopathy (L), Stiff neck, Carotid bruit, Swelling/bruising, Tracheal deviation Respiratory: positive: Chest non-tender, No respiratory distress, Breath sounds nml. negative: Wheezes, Rales, Rhonchi Cardiovascular: positive: Regular rate & rhythm, No murmur, No gallop. negative : Irregularly irregular, Extrasystoles, Tachycardia, Bradycardia, JVD present, Systolic murmur, Diastolic murmur Peripheral Pulses: 2+ Radial (R), 2+ Radial (L), 2+ Dorsalis pedis (R), 2+ Dorsalis pedis (L) Abdomen: positive: Non-tender, No organomegaly, Nml bowel sounds, No distention. negative: Tenderness, Guarding, Rebound Back: positive: Nml inspection. negative: CVA tenderness (R), CVA tenderness (L ) Skin: positive: Color nml, No rash, Warm, Dry. negative: Cyanosis, Diaphoresis , Pallor Extremities: positive: Non-tender, Full ROM, Nml appearance. negative: Calf tenderness, Joint swelling, Julia's sign/cords Neurologic/Psychiatric: positive: Oriented x3, Motor nml, Sensation nml, Mood/ affect nml. negative: Weakness, Sensory loss, Facial droop, Slurred/abnml speech, Depressed mood/affect - Lab Results Fish Bones: 09/30/17 05:21 09/30/17 05:21 Other Labs: Lab Results x24hrs 09/30/17 09/30/17 09/30/17 Range/Units 16:16 11:02 08:48 WBC (4.8-10.8) x10^3/uL RBC (4.20-5.40) 10^6/uL Hgb (12.0-16.0) g/dL Hct (37.0-47.0) % MCV (81.0-99.0) fL MCH (27.0-31.0) pg MCHC (32.0-36.0) g/dL RDW (12.0-15.0) % Plt Count (130-450) 10^3/uL MPV (7.9-10.8) fL Neut # (Auto) (1.5-6.6) 10^3/uL Lymph # (Auto) (1.5-3.5) 10^3/uL [place] # (Auto) (0.0-1.0) 10^3/uL Eos # (Auto) (0.0-0.7) 10^3/uL Baso # (Auto) (0.0-0.1) 10^3/uL Absolute Nucleated RBC x10^3/uL Nucleated RBC % /100WBC Sodium (135-145) mmol/L Potassium (3.5-5.0) mmol/L Chloride (101-111) mmol/L Carbon Dioxide (21-32) mmol/L Anion Gap (6-13) BUN (6-20) mg/dL Creatinine (0.4-1.0) mg/dL Estimated GFR (MDRD) (>89) Glucose (70-100) mg/dL POC Whole Bld Glucose 75 96 87 (70 - 100) mg/dL Calcium (8.5-10.3) mg/dL Magnesium (1.7-2.8) mg/dL Total Bilirubin (0.2-1.0) mg/dL AST (10-42) IU/L ALT (10-60) IU/L Alkaline Phosphatase (42-121) IU/L Total Protein (6.7-8.2) g/dL Albumin (3.2-5.5) g/dL Globulin (2.1-4.2) g/dL Albumin/Globulin Ratio (1.0-2.2) TSH (0.34-5.60) uIU/mL 09/30/17 09/30/17 09/30/17 Range/Units 06:58 05:21 05:21 WBC (4.8-10.8) x10^3/uL RBC (4.20-5.40) 10^6/uL Hgb (12.0-16.0) g/dL Hct (37.0-47.0) % MCV (81.0-99.0) fL MCH (27.0-31.0) pg MCHC (32.0-36.0) g/dL RDW (12.0-15.0) % Plt Count (130-450) 10^3/uL MPV (7.9-10.8) fL Neut # (Auto) (1.5-6.6) 10^3/uL Lymph # (Auto) (1.5-3.5) 10^3/uL [place] # (Auto) (0.0-1.0) 10^3/uL Eos # (Auto) (0.0-0.7) 10^3/uL Baso # (Auto) (0.0-0.1) 10^3/uL Absolute Nucleated RBC x10^3/uL Nucleated RBC % /100WBC Sodium 138 (135-145) mmol/L Potassium 3.2 L (3.5-5.0) mmol/L Chloride 111 (101-111) mmol/L Carbon Dioxide 21 (21-32) mmol/L Anion Gap 6.0 (6-13) BUN 14 (6-20) mg/dL Creatinine 0.4 (0.4-1.0) mg/dL Estimated GFR (MDRD) 159 (>89) Glucose 94 (70-100) mg/dL POC Whole Bld Glucose 77 (70 - 100) mg/dL Calcium 7.9 L (8.5-10.3) mg/dL Magnesium 2.1 (1.7-2.8) mg/dL Total Bilirubin 0.9 (0.2-1.0) mg/dL AST 55 H (10-42) IU/L ALT 56 (10-60) IU/L Alkaline Phosphatase 46 (42-121) IU/L Total Protein 5.1 L (6.7-8.2) g/dL Albumin 2.9 L (3.2-5.5) g/dL Globulin 2.2 (2.1-4.2) g/dL Albumin/Globulin Ratio 1.3 (1.0-2.2) TSH 4.02 (0.34-5.60) uIU/mL 09/30/17 09/29/17 09/29/17 Range/Units 05:21 23:24 20:34 WBC 6.5 (4.8-10.8) x10^3/uL RBC 2.77 L (4.20-5.40) 10^6/uL Hgb 7.3 L (12.0-16.0) g/dL Hct 22.6 L (37.0-47.0) % MCV 81.7 (81.0-99.0) fL MCH 26.4 L (27.0-31.0) pg MCHC 32.3 (32.0-36.0) g/dL RDW 17.1 H (12.0-15.0) % Plt Count 195 (130-450) 10^3/uL MPV 8.7 (7.9-10.8) fL Neut # (Auto) 5.0 (1.5-6.6) 10^3/uL Lymph # (Auto) 0.9 L (1.5-3.5) 10^3/uL [place] # (Auto) 0.4 (0.0-1.0) 10^3/uL Eos # (Auto) 0.1 (0.0-0.7) 10^3/uL Baso # (Auto) 0.0 (0.0-0.1) 10^3/uL Absolute Nucleated RBC 0.06 x10^3/uL Nucleated RBC % 0.9 /100WBC Sodium (135-145) mmol/L Potassium (3.5-5.0) mmol/L Chloride (101-111) mmol/L Carbon Dioxide (21-32) mmol/L Anion Gap (6-13) BUN (6-20) mg/dL Creatinine (0.4-1.0) mg/dL Estimated GFR (MDRD) (>89) Glucose (70-100) mg/dL POC Whole Bld Glucose 107 H 76 (70 - 100) mg/dL Calcium (8.5-10.3) mg/dL Magnesium (1.7-2.8) mg/dL Total Bilirubin (0.2-1.0) mg/dL AST (10-42) IU/L ALT (10-60) IU/L Alkaline Phosphatase (42-121) IU/L Total Protein (6.7-8.2) g/dL Albumin (3.2-5.5) g/dL Globulin (2.1-4.2) g/dL Albumin/Globulin Ratio (1.0-2.2) TSH (0.34-5.60) uIU/mL 09/29/17 Range/Units 20:04 WBC (4.8-10.8) x10^3/uL RBC (4.20-5.40) 10^6/uL Hgb 8.7 L (12.0-16.0) g/dL Hct 28.6 L (37.0-47.0) % MCV (81.0-99.0) fL MCH (27.0-31.0) pg MCHC (32.0-36.0) g/dL RDW (12.0-15.0) % Plt Count (130-450) 10^3/uL MPV (7.9-10.8) fL Neut # (Auto) (1.5-6.6) 10^3/uL Lymph # (Auto) (1.5-3.5) 10^3/uL [place] # (Auto) (0.0-1.0) 10^3/uL Eos # (Auto) (0.0-0.7) 10^3/uL Baso # (Auto) (0.0-0.1) 10^3/uL Absolute Nucleated RBC x10^3/uL Nucleated RBC % /100WBC Sodium (135-145) mmol/L Potassium (3.5-5.0) mmol/L Chloride (101-111) mmol/L Carbon Dioxide (21-32) mmol/L Anion Gap (6-13) BUN (6-20) mg/dL Creatinine (0.4-1.0) mg/dL Estimated GFR (MDRD) (>89) Glucose (70-100) mg/dL POC Whole Bld Glucose (70 - 100) mg/dL Calcium (8.5-10.3) mg/dL Magnesium (1.7-2.8) mg/dL Total Bilirubin (0.2-1.0) mg/dL AST (10-42) IU/L ALT (10-60) IU/L Alkaline Phosphatase (42-121) IU/L Total Protein (6.7-8.2) g/dL Albumin (3.2-5.5) g/dL Globulin (2.1-4.2) g/dL Albumin/Globulin Ratio (1.0-2.2) TSH (0.34-5.60) uIU/mL ABX Reporting Has patient been on IV antibiotics over the past 48 hours?: No Assessment/Plan - Problem List (1) GI bleeding Impression: Impression: 09/30 pt report she still had a little blood stool, fresh bloody. pt will have colonoscopy this afternoon, will follow up HGB continue to drop, H&H, overnight watch pt plan to have colonoscopy tomorrow, per GI surgeon clear diet continue IVF start Protonix IV H&H (2) Profound anemia Impression: 09/30 HGB 7.3 at morning, follow up colonoscopy test, will H&H after transfusion of 4 units, pt's HGB 8 continue H&H it appears iron deficiency as well, start iron pill (3) Hypokalemia Impression: resolved replacement of Potassium lab check (5) Current smoker Impression: advise pt quit (6) Hypothyroidism Impression: TSH is normal stable, continue home meds, check TSH Qualifiers: GI bleed type/associated pathology: unspecified gastrointestinal hemorrhage type Qualified Code(s): K92.2 - Gastrointestinal hemorrhage, unspecified (2) Profound anemia Qualifiers: Anemia type: iron deficiency Iron deficiency anemia type: chronic blood loss Qualified Code(s): D50.0 - Iron deficiency anemia secondary to blood loss (chronic)
[2017-09-30 20:13] LABS: HGB - HEMOGLOBIN 7.6 g/dL (12.0-16.0)
[2017-10-01] MEDS: SODIUM CHLORIDE 0.9% 1,000 ML IV SCH ×3 (00:16→23:07)
[2017-10-01] MEDS: SODIUM CHLORIDE FLUSH 0.9% 10 ML SYRINGE IVP SCH ×3 (03:29→16:06)
[2017-10-01] MEDS: SODIUM CHLORIDE FLUSH 0.9% 10 ML SYRINGE IVP PRN ×3 (05:02→09:25)
[2017-10-01 05:35] LABS: BASOPHILS % (AUTO) 0.4 %; EOSINOPHILS # (AUTO) 0.2 10^3/uL (0.0-0.7); EOSINOPHILS % (AUTO) 2.3 %; LYMPHOCYTES # (AUTO) 0.6 10^3/uL (1.5-3.5); LYMPHOCYTES % (AUTO) 5.9 %; MEAN CORPUSCULAR HEMOGLOBIN 26.8 pg (27.0-31.0); MEAN CORPUSCULAR HGB CONC 32.2 g/dL (32.0-36.0); MEAN CORPUSCULAR VOLUME 83.3 fL (81.0-99.0); MEAN PLATELET VOLUME 8.9 fL (7.9-10.8); MONOCYTES # (AUTO) 0.6 10^3/uL (0.0-1.0); MONOCYTES % (AUTO) 5.9 %; NEUTROPHILS # (AUTO) 8.7 10^3/uL (1.5-6.6); NEUTROPHILS % (AUTO) 85.5 %; PLT - PLATELET COUNT 192 10^3/uL (130-450); RED BLOOD COUNT 2.52 10^6/uL (4.20-5.40); RED CELL DISTRIBUTION WIDTH 17.5 % (12.0-15.0); WHITE BLOOD COUNT 10.2 x10^3/uL (4.8-10.8)
[2017-10-01 05:38] LABS: ALBUMIN 2.5 g/dL (3.2-5.5); ALBUMIN/GLOBULIN RATIO 1.1 (1.0-2.2); BILIRUBIN,TOTAL 0.7 mg/dL (0.2-1.0); CALCIUM 7.8 mg/dL (8.5-10.3); CREATININE 0.5 mg/dL (0.4-1.0); TOTAL PROTEIN 4.7 g/dL (6.7-8.2)
[2017-10-01 05:40] LABS: HGB - HEMOGLOBIN 6.8 g/dL (12.0-16.0)
[2017-10-01] MEDS: PANTOPRAZOLE 40 MG VIAL IVP SCH (06:10)
[2017-10-01] MEDS: LEVOTHYROXINE 100 MCG TABLET PO SCH (06:11)
[2017-10-01] MEDS ORDERED: CALCIUM GLUCONATE 1,000 MG in SODIUM CHLORIDE 0.9% 50 ML IV ONE (07:28)
[2017-10-01] MEDS: FERROUS SULFATE 325 MG TABLET PO SCH ×2 (08:42→16:06)
[2017-10-01] MEDS: INSULIN ASPART 300 UNIT/3 ML PEN SUBQ SCH ×4 (08:42→20:41)
[2017-10-01] MEDS: POLYETHYLENE GLYCOL 3350 17 GM PACKET PO SCH (08:42)
[2017-10-01] MEDS: hydroCHLOROthiazide 12.5 MG CAPSULE PO SCH (08:42)
[2017-10-01] MEDS ORDERED: diphenhydrAMINE INJ 50 MG/ML VIAL IVP ONE (10:00)
[2017-10-01] MEDS ORDERED: ACETAMINOPHEN 500 MG TABLET PO ONE (10:00)
--- NOTE | 2017-10-01 12:25 | PROVIDER PROGRESS NOTE ---
Subjective - Prog Note Date Prog Note Date: 10/01/17 - Subjective Pt reports feeling: No change Subjective: she think she did not have GI bleed. I saw her stool, it is very dark. FIT test is positive. Also pt's HGB is drop to 6.8. I called Dr. Martinez about pt's GI bleed condition. Dr. Martinez state pt did not have acute bleeding site, should stop the bleeding, agree blood transfusion, if pt still bleed, then give pt tranexamic acid, let pt go to home, follow up her and PCP. Meanwhile wait for pt 's sample biopsy result. Objective - Vital Signs/Intake & Output Vital Signs: Vital Signs x48h Temp Pulse Pulse Resp BP BP Pulse Ox 10/01/17 11:02 37.0 C 66 18 138/58 H 10/01/17 10:45 36.9 C 66 18 129/54 L 10/01/17 10:25 36.7 C 66 18 129/54 L 100 10/01/17 08:00 36.7 C 65 18 136/60 H 100 10/01/17 05:26 36.6 C 70 16 144/54 H 94 Intake & Output: Intake & Output 09/28/17 09/29/17 09/30/17 10/01/17 23:59 23:59 23:59 23:59 Intake Total 3203.75 3396.25 1420.00 Balance 3203.75 3396.25 1420.00 - Lab Results Fish Bones: 10/01/17 04:45 10/01/17 04:45 Other Labs: Lab Results x24hrs 10/01/17 10/01/17 10/01/17 Range/Units 11:42 07:53 07:24 WBC (4.8-10.8) x10^3/uL RBC (4.20-5.40) 10^6/uL Hgb (12.0-16.0) g/dL Hct (37.0-47.0) % MCV (81.0-99.0) fL MCH (27.0-31.0) pg MCHC (32.0-36.0) g/dL RDW (12.0-15.0) % Plt Count (130-450) 10^3/uL MPV (7.9-10.8) fL Neut # (Auto) (1.5-6.6) 10^3/uL Lymph # (Auto) (1.5-3.5) 10^3/uL [place] # (Auto) (0.0-1.0) 10^3/uL Eos # (Auto) (0.0-0.7) 10^3/uL Baso # (Auto) (0.0-0.1) 10^3/uL Absolute Nucleated RBC x10^3/uL Nucleated RBC % /100WBC Sodium (135-145) mmol/L Potassium (3.5-5.0) mmol/L Chloride (101-111) mmol/L Carbon Dioxide (21-32) mmol/L Anion Gap (6-13) BUN (6-20) mg/dL Creatinine (0.4-1.0) mg/dL Estimated GFR (MDRD) (>89) Glucose (70-100) mg/dL POC Whole Bld Glucose 84 94 (70 - 100) mg/dL Calcium (8.5-10.3) mg/dL Total Bilirubin (0.2-1.0) mg/dL AST (10-42) IU/L ALT (10-60) IU/L Alkaline Phosphatase (42-121) IU/L Total Protein (6.7-8.2) g/dL Albumin (3.2-5.5) g/dL Globulin (2.1-4.2) g/dL Albumin/Globulin Ratio (1.0-2.2) Blood Type O POSITIVE Antibody Screen NEGATIVE Crossmatch IS Only See Detail 10/01/17 10/01/17 09/30/17 Range/Units 04:45 04:45 20:05 WBC 10.2 (4.8-10.8) x10^3/uL RBC 2.52 L (4.20-5.40) 10^6/uL Hgb 6.8 L* (12.0-16.0) g/dL Hct 21.0 L (37.0-47.0) % MCV 83.3 (81.0-99.0) fL MCH 26.8 L (27.0-31.0) pg MCHC 32.2 (32.0-36.0) g/dL RDW 17.5 H (12.0-15.0) % Plt Count 192 (130-450) 10^3/uL MPV 8.9 (7.9-10.8) fL Neut # (Auto) 8.7 H (1.5-6.6) 10^3/uL Lymph # (Auto) 0.6 L (1.5-3.5) 10^3/uL [place] # (Auto) 0.6 (0.0-1.0) 10^3/uL Eos # (Auto) 0.2 (0.0-0.7) 10^3/uL Baso # (Auto) 0.0 (0.0-0.1) 10^3/uL Absolute Nucleated RBC 0.05 x10^3/uL Nucleated RBC % 0.5 /100WBC Sodium 138 (135-145) mmol/L Potassium 3.6 (3.5-5.0) mmol/L Chloride 111 (101-111) mmol/L Carbon Dioxide 20 L (21-32) mmol/L Anion Gap 7.0 (6-13) BUN 13 (6-20) mg/dL Creatinine 0.5 (0.4-1.0) mg/dL Estimated GFR (MDRD) 123 (>89) Glucose 115 H (70-100) mg/dL POC Whole Bld Glucose 102 H (70 - 100) mg/dL Calcium 7.8 L (8.5-10.3) mg/dL Total Bilirubin 0.7 (0.2-1.0) mg/dL AST 36 (10-42) IU/L ALT 43 (10-60) IU/L Alkaline Phosphatase 46 (42-121) IU/L Total Protein 4.7 L (6.7-8.2) g/dL Albumin 2.5 L (3.2-5.5) g/dL Globulin 2.2 (2.1-4.2) g/dL Albumin/Globulin Ratio 1.1 (1.0-2.2) Blood Type Antibody Screen Crossmatch IS Only 09/30/17 09/30/17 Range/Units 20:01 16:16 WBC (4.8-10.8) x10^3/uL RBC (4.20-5.40) 10^6/uL Hgb 7.6 L (12.0-16.0) g/dL Hct 23.9 L (37.0-47.0) % MCV (81.0-99.0) fL MCH (27.0-31.0) pg MCHC (32.0-36.0) g/dL RDW (12.0-15.0) % Plt Count (130-450) 10^3/uL MPV (7.9-10.8) fL Neut # (Auto) (1.5-6.6) 10^3/uL Lymph # (Auto) (1.5-3.5) 10^3/uL [place] # (Auto) (0.0-1.0) 10^3/uL Eos # (Auto) (0.0-0.7) 10^3/uL Baso # (Auto) (0.0-0.1) 10^3/uL Absolute Nucleated RBC x10^3/uL Nucleated RBC % /100WBC Sodium (135-145) mmol/L Potassium (3.5-5.0) mmol/L Chloride (101-111) mmol/L Carbon Dioxide (21-32) mmol/L Anion Gap (6-13) BUN (6-20) mg/dL Creatinine (0.4-1.0) mg/dL Estimated GFR (MDRD) (>89) Glucose (70-100) mg/dL POC Whole Bld Glucose 75 (70 - 100) mg/dL Calcium (8.5-10.3) mg/dL Total Bilirubin (0.2-1.0) mg/dL AST (10-42) IU/L ALT (10-60) IU/L Alkaline Phosphatase (42-121) IU/L Total Protein (6.7-8.2) g/dL Albumin (3.2-5.5) g/dL Globulin (2.1-4.2) g/dL Albumin/Globulin Ratio (1.0-2.2) Blood Type Antibody Screen Crossmatch IS Only Assessment/Plan - Problem List (1) GI bleeding Impression: Impression: 09/30 pt report she still had a little blood stool, fresh bloody. pt will have colonoscopy this afternoon, will follow up HGB continue to drop, H&H, overnight watch pt plan to have colonoscopy tomorrow, per GI surgeon clear diet continue IVF start Protonix IV H&H (2) Profound anemia Impression: 09/30 HGB 7.3 at morning, follow up colonoscopy test, will H&H after transfusion of 4 units, pt's HGB 8 continue H&H it appears iron deficiency as well, start iron pill (3) Hypokalemia Impression: resolved replacement of Potassium lab check (5) Current smoker Impression: advise pt quit (6) Hypothyroidism Impression: TSH is normal Qualifiers: GI bleed type/associated pathology: unspecified gastrointestinal hemorrhage type Qualified Code(s): K92.2 - Gastrointestinal hemorrhage, unspecified (2) Profound anemia Qualifiers: Anemia type: iron deficiency Iron deficiency anemia type: chronic blood loss Qualified Code(s): D50.0 - Iron deficiency anemia secondary to blood loss (chronic)
[2017-10-01] MEDS: FAMOTIDINE 20 MG TABLET PO SCH (22:14)
[2017-10-02] MEDS: SODIUM CHLORIDE FLUSH 0.9% 10 ML SYRINGE IVP SCH ×2 (01:20→13:24)
[2017-10-02 05:08] LABS: BASOPHILS % (AUTO) 0.4 %; EOSINOPHILS # (AUTO) 0.2 10^3/uL (0.0-0.7); HGB - HEMOGLOBIN 8.8 g/dL (12.0-16.0); LYMPHOCYTES # (AUTO) 0.8 10^3/uL (1.5-3.5); LYMPHOCYTES % (AUTO) 10.7 %; MEAN CORPUSCULAR HEMOGLOBIN 27.1 pg (27.0-31.0); MEAN CORPUSCULAR HGB CONC 32.2 g/dL (32.0-36.0); MEAN CORPUSCULAR VOLUME 84.1 fL (81.0-99.0); MEAN PLATELET VOLUME 8.7 fL (7.9-10.8); MONOCYTES # (AUTO) 0.6 10^3/uL (0.0-1.0); MONOCYTES % (AUTO) 8.2 %; NEUTROPHILS % (AUTO) 78.7 %; PLT - PLATELET COUNT 182 10^3/uL (130-450); RED BLOOD COUNT 3.26 10^6/uL (4.20-5.40); RED CELL DISTRIBUTION WIDTH 18.1 % (12.0-15.0); WHITE BLOOD COUNT 7.6 x10^3/uL (4.8-10.8)
[2017-10-02 05:14] LABS: ALBUMIN 2.5 g/dL (3.2-5.5); BILIRUBIN,TOTAL 0.8 mg/dL (0.2-1.0); CALCIUM 7.8 mg/dL (8.5-10.3); CREATININE 0.7 mg/dL (0.4-1.0)
[2017-10-02] MEDS: LEVOTHYROXINE 100 MCG TABLET PO SCH (06:42)
[2017-10-02] MEDS ORDERED: LEVOTHYROXINE 100 MCG TABLET PO SCH (07:00)
[2017-10-02] MEDS ORDERED: FERRIC GLUCONATE 62.5 MG/5 ML VIAL IVP ONE (07:26)
[2017-10-02] MEDS ORDERED: FERRIC GLUCONATE 125 MG in SODIUM CHLORIDE 0.9% 100ML 100 ML IV ONE (08:00)
[2017-10-02] MEDS: hydroCHLOROthiazide 12.5 MG CAPSULE PO SCH (09:08)
[2017-10-02] MEDS: INSULIN ASPART 300 UNIT/3 ML PEN SUBQ SCH ×2 (09:08→14:11)
[2017-10-02] MEDS: CALCIUM CITRATE 250 MG TABLET PO SCH ×2 (09:08→09:13)
[2017-10-02] MEDS: FAMOTIDINE 20 MG TABLET PO SCH (09:08)
[2017-10-02] MEDS: POLYETHYLENE GLYCOL 3350 17 GM PACKET PO SCH (09:12)
[2017-10-02 13:19] LABS: HGB - HEMOGLOBIN 10.1 g/dL (12.0-16.0)
--- NOTE | 2017-10-02 13:27 | Discharge Plan ---
Discharge Plan Disposition: Home, Self Care Condition: Poor Prescriptions: Ferrous Sulfate 325 mg PO DAILY #30 tablet Diet: Regular Activity Restrictions: Activity as Tolerated Shower Restrictions: No (fall precaution) Instruction Topics: A1C Diabetes Test Ch Additional Instructions or Follow Up instructions: You may follow up your PCP in one week, follow up Dr. Jennie Martinez and for your biopsy sample result in one week. Should your symptoms return or worsen, you may present ER or call 911 for help. No Smoking: If you smoke, Please STOP! Call for help. Follow-up with: Elaine Waldrop PA-C [Primary Care Provider] -
--- NOTE | 2017-10-02 13:48 | DISCHARGE SUMMARY ---
Discharge Summary Discharge Date: 10/02/17 Discharging Provider: PAULSON Primary Care Provider: Dr. Amanda Waldrop Condition at Discharge: Poor Discharge Disposition: 01 Home, Self Care Discharge Facility Name: home - DIAGNOSES Admission Diagnoses: (1) GI bleeding (2) Profound anemia (3) Hypokalemia (4) DM2, controlled (5) Current smoker (6) Hypothyroidism Discharge Diagnoses with Status of Each Condition: (1) GI bleeding resolved. pt report no GI bleeding, no black stool. Nurse tech report the same. HGB is going up to 10.1, follow up Dr. Martinez and for biopsy result. pt was found H. Pylori negative in hospital. EGD is unremarkable, Colonoscopy found pt had lesion which was biopsied but without acute bleeding per Dr. Martinez reports. (2) Profound anemia stable, HGB10.1. Iron deficiency, IV of Ferrlecit. continue iron. follow up PCP management (3) Hypokalemia resolved (4) DM2, controlled A1C is 5.2, and glucose is well controlled in hospital course. pt also present high anion gap with low carbon dioxide in admission, suspect from lactic acidosis from Metformin. Hold Metformin in hospital, pt show normal anion gap. Hold Metformin, follow up PCP management (5) Current smoker advise pt quit smoking (6) Hypothyroidism stable, TSH normal - HPI History of Present Illness: pt was admitted for nearly syncope and dizziness. then pt was found to profound anemia at HGB 3.1. pt had blood transfusion, and EGD and colonoscopy with Dr. Martinez. - HOSPITAL COURSE Hospital Course: pt had twice blood transfusion total 6 units of blood. pt was found H. Pylori negative in hospital. EGD is unremarkable, Colonoscopy found pt had lesion which was biopsied but without acute bleeding per Dr. Martinez reports. Pt was also found significant iron deficiency. Ferrlecit was prescribed to pt. Pt is prescribe iron to home. Metformin is hold. A1C is 5.2, and glucose is well controlled in hospital course. pt also present high anion gap with low carbon dioxide in admission, suspect from lactic acidosis from Metformin. Hold Metformin in hospital, pt show normal anion gap - ALLERGIES Allergies/Adverse Reactions: Allergies Allergy/AdvReac Type Severity Reaction Status Date / Time No Known Drug Allergies Allergy Verified 09/28/17 20:59 - MEDICATIONS Home Medications: Ambulatory Orders Medication Instructions Recorded Confirmed Aspirin [Aspir-Low] 81 mg PO DAILY 05/04/16 08/09/18 Hydrochlorothiazide 12.5 mg PO DAILY 06/25/15 09/29/17 Potassium Chloride 10 meq PO DAILY 06/25/15 09/29/17 Rosuvastatin Calcium [Crestor] 20 mg PO QPM 06/25/15 09/29/17 Ca/D3/Mag#11/Zinc/Audiology Director/Dmitry/Bor 1 each PO BID 09/29/17 09/29/17 [Caltrate 600+D Plus Tablet] Levothyroxine [Synthroid] 100 mcg PO .QDAC (NOT REEMA) 09/29/17 09/29/17 Levothyroxine [Synthroid] 200 mcg PO .QSUNDAY AC 09/29/17 09/29/17 Zolpidem Tartrate [Ambien] 10 mg PO QPM PRN 09/29/17 09/29/17 diazePAM [Diazepam] 2.5 - 5 mg PO QPM PRN 09/29/17 09/29/17 raNITIdine HCl [Ranitidine HCl] 150 mg PO BID 09/29/17 09/29/17 Ferrous Sulfate 325 mg PO DAILY #30 tablet 10/02/17 - PHYSICAL EXAM AT DISCHARGE General Appearance: positive: No acute distress, Alert. negative: Lethargic Eyes Bilateral: positive: Normal inspection, PERRL, No lid inflammation, Conjunctivae nml ENT: positive: ENT inspection nml, Pharynx nml, No signs of dehydration. negative: Purulent nasal drainage, Pharyngeal erythema, Oral lesions Neck: positive: Nml inspection, Thyroid nml, No JVD, Trachea midline. negative : Thyromegaly, Lymphadenopathy (R), Lymphadenopathy (L), Stiff neck, Swelling/ bruising, Tracheal deviation Respiratory: positive: Chest non-tender, No respiratory distress, Breath sounds nml. negative: Wheezes, Rales, Rhonchi Cardiovascular: positive: Regular rate & rhythm, No murmur, No gallop. negative : Irregularly irregular, Extrasystoles, Tachycardia, Bradycardia, JVD present, Systolic murmur, Diastolic murmur Peripheral Pulses: positive: 2+ Abdomen: positive: Non-tender, No organomegaly, Nml bowel sounds, No distention. negative: Tenderness, Guarding, Rebound Back: positive: Nml inspection. negative: CVA tenderness (R), CVA tenderness (L ) Skin: positive: Color nml, No rash, Warm, Dry. negative: Cyanosis, Diaphoresis , Pallor Extremities: positive: Non-tender, Full ROM, Nml appearance. negative: Calf tenderness, Joint swelling, Julia's sign/cords Neurologic/Psychiatric: positive: Oriented x3, CN's nml (2-12), Motor nml, Sensation nml, Mood/affect nml. negative: Weakness, Sensory loss, Facial droop , Slurred/abnml speech, Depressed mood/affect - LABS Result Diagrams: 10/02/17 12:52 10/02/17 04:45 - FOLLOW UP Follow Up: You may follow up your PCP in one week, follow up Dr. Jennie Martinez and for your biopsy sample result in one week. Metformin is hold now. your had 5.2 A1C, and well controlled glucose level. Should your symptoms return or worsen, you may present ER or call 911 for help. - TIME SPENT Time Spent in Discharge (Minutes): 50
[2017-10-02] MEDS: SODIUM CHLORIDE 0.9% 1,000 ML IV SCH (14:12)
[2017-10-02 18:54] VITALS: BP 151/52
== END 2017-10-02 19:08 | disposition home or self-care (01) | DRG 812 ==
LOC: ED 20:03 → OBS 22:06 → OBSVTOIN 09-29 12:49 → MS2 09-29 14:12
PROVIDERS: ADMIT Specialist; ATTEND Nurse Practitioner Gerontology
PROC: 30233N1 Transfusion of Nonautologous Red Blood Cells into Peripheral Vein, Percutaneous Approach (ICD-10-PCS; principal; 2017-09-28)
PROC: 0DB68ZX Excision of Stomach, Via Natural or Artificial Opening Endoscopic, Diagnostic (ICD-10-PCS; 2017-09-29)
PROC: 0DBK8ZX Excision of Ascending Colon, Via Natural or Artificial Opening Endoscopic, Diagnostic (ICD-10-PCS; 2017-09-30)
PROC: 0DBM8ZX Excision of Descending Colon, Via Natural or Artificial Opening Endoscopic, Diagnostic (ICD-10-PCS; 2017-09-30)
DX: D50.0 Iron deficiency anemia secondary to blood loss (chronic) (principal); R06.00 Dyspnea, unspecified; K92.2 Gastrointestinal hemorrhage, unspecified; K29.80 Duodenitis without bleeding; K64.8 Other hemorrhoids; Z72.0 Tobacco use; E87.6 Hypokalemia; E11.9 Type 2 diabetes mellitus without complications; K59.00 Constipation, unspecified; I10 Essential (primary) hypertension; E78.00 Pure hypercholesterolemia, unspecified
CPT/HCPCS: 43239; 45380; G0378; 36415; 36430; 71045; 80048; 80053; 82270; 82607; 82746; 83036; 83540; 83690; 83735; 83880; 84443; 84466; 85014; 85018; 85025; 85027; 86850; 86900; 86901; 86920; 87338; 88305; 93005; 96361; 96365; 96366; 96374; 96375; 96376; 99285